=== PATIENT | male | born 1985 | race Two or more races ===

== ENCOUNTER → 2019-03-14 | Outpatient (CLI) | payer BC ==
--- NOTE | 2019-03-14 17:08 | RADIOLOGY REPORT (SQ) ---
EXAM DESCRIPTION: MRI LT LOWER JOINT WITHOUT COMPLETED DATE/TIME: 03/14/2019 8:26 am REASON FOR STUDY: UNSPEC INTERNAL DERANGEMENT OF LEFT KNEE (M23.92) M23.92 UNSPECIFIED INTERNAL RODRIGO ANGEMENT OF LEFT KNEE COMPARISON: None. TECHNIQUE: Leftknee images acquired and stored on PACS. Multiplanar images include fat sensitive se quences as T1, water sensitive sequences as FST2 or STIR, cartilage sensitive sequences as FSPD, and gradient echo sequences. LIMITATIONS: None. FINDINGS: JOINT AND BURSAE: Joint effusion. No popliteal cyst. BONE CORTEX AND MARROW: No alteration of signal to suggest marrow replacement. No worrisome bone lesi ons. No occult fracture. ACL: Intact. No degeneration or ganglion cyst. PCL: Intact. MCL: Intact. No periligamentous edema or fluid. LCL: Intact. No periligamentous edema or fluid. MEDIAL MENISCUS: No tears. No abnormal signal. LATERAL MENISCUS: No tears. No abnormal signal. MEDIAL COMPARTMENT: Cartilage preserved. No bone bruises or reactive marrow edema. No osteophytes. LATERAL COMPARTMENT: Cartilage preserved. No bone bruises or reactive marrow edema. No osteophytes. PATELLA: No chondromalacia. No subchondral cysts. Medial and lateral retinacula intact. EXTENSOR MECHANISM: Intact. Quadriceps and patella tendons normal. SOFT TISSUES: Adjacent muscles and subcutaneous tissues normal. Normal flow void in popliteal artery and vein. OTHER: No other significant finding. IMPRESSION: Large joint effusion. No internal derangement. TECHNICAL DOCUMENTATION: JOB ID: [id number] [employer]- All Rights Reserved Reading location - IP/workstation name: [email or web address]
== END ==
LOC: RAD 07:15
PROVIDERS: ATTEND Orthopaedic Surgery
DX: M23.92 Unspecified internal derangement of left knee (principal)

== ENCOUNTER → 2019-03-16 | Outpatient (CLI) | payer BC ==
[2019-03-16 14:00] LABS: CALCIUM PYROPHOSPHATE CRYSTALS NONE OBSERVED; MONOSODIUM URATE CRYSTALS NONE OBSERVED; OTHER CRYSTALS NONE OBSERVED
[2019-03-16 14:15] LABS: FLUID TYPE SYNOVIAL
[2019-03-16 14:16] LABS: FLUID APPEARANCE CLEAR; FLUID COLOR YELLOW; FLUID SOURCE KNEE; FLUID VISCOSITY SLIGHTLY VISCOUS
[2019-03-19 14:05] LABS: LYME DISEASE IGM AB <0.80 index (0.00-0.79)
[2019-03-19 14:36] LABS: E. CHAFFEENSIS IGG TITER Negative (Neg:<1:64)
[2019-03-19 14:59] LABS: E. CHAFFEENSIS IGM TITER Negative (Neg:<1:20)
[2019-03-19 17:36] LABS: CYTOPLASMIC (C-ANCA) <1:20 titer (Neg:<1:20)
[2019-03-20 07:09] LABS: ATYPICAL PANCA <1:20 titer (Neg:<1:20); CYCLIC CITRUL PEPTIDE IGG/A AB 6 units (0-19)
== END ==
LOC: OD 10:09
PROVIDERS: ATTEND Orthopaedic Surgery
DX: R60.9 Edema, unspecified (principal); M25.50 Pain in unspecified joint; E27.8 Other specified disorders of adrenal gland
CPT/HCPCS: 36415; 82306; 82784; 85652; 86021; 86038; 86140; 86200; 86617; 86618; 86812; 87070; 87075; 87205; 89050; 89060

== ENCOUNTER 2019-08-16 09:27 | Day surgery (SDC) | payer BC ==
[~2019-08-16 09:27] MED LIST: ACETAMINOPHEN 325 MG TABLET PO PRN; CEFAZOLIN 2 GM/D5W RTU 2 GM/50 ML RTUPB IV PRN; LACTATED RINGERS 1000 ML IV PRN; LIDOCAINE 0.5% INJ-PF (5 MG/ML) 50 ML SDV SUBCUT PRN; OXYCODONE HCL SR 10 MG TABLET PO PRN; PANTOPRAZOLE SODIUM 20 MG TABLET.DR PO PRN
[2019-08-16] MEDS ORDERED: DEXAMETHASONE SOD PHOSPHATE INJ 4 MG/1 ML VIAL ONE (09:54)
[2019-08-16] MEDS ORDERED: ONDANSETRON HCL INJ/PF 4 MG/2 ML SDV ONE (09:54)
[2019-08-16] MEDS ORDERED: LIDOCAINE 2% INJ-PF (20 MG/ML) 2 ML AMPUL ONE (09:54)
[2019-08-16] MEDS ORDERED: KETOROLAC TROMETHAMINE 60 MG/2 ML SDV ONE (09:54)
[2019-08-16] MEDS ORDERED: CEFAZOLIN 2 GM/D5W RTU 2 GM/50 ML RTUPB IV ONE (10:04)
[2019-08-16] MEDS ORDERED: OXYCODONE HCL SR 10 MG TABLET PO ONE (10:05)
[2019-08-16] MEDS ORDERED: PANTOPRAZOLE SODIUM 20 MG TABLET.DR PO ONE (10:05)
[2019-08-16] MEDS ORDERED: ACETAMINOPHEN 325 MG TABLET ONE (10:05)
[2019-08-16] MEDS ORDERED: MIDAZOLAM 2 MG/2 ML INJ ONE (12:08)
[2019-08-16] MEDS ORDERED: FENTANYL CITRATE INJ/PF 100 MCG/2 ML AMPUL ONE (12:08)
[2019-08-16] MEDS ORDERED: PROPOFOL INJ 200 MG/20 ML VIAL IV ONE (12:09)
[2019-08-16] MEDS ORDERED: TRIAMCINOLONE ACETONIDE INJ 40 MG/1 ML VIAL ONE (12:17)
[2019-08-16] MEDS ORDERED: EPINEPHRINE INJ/PF 1 MG/1 ML AMPULE ONE (12:17)
[2019-08-16] MEDS ORDERED: BUPIVACAINE HCL 0.5 % INJ/PF 30 ML SDV ONE (12:17)
[2019-08-16] MEDS ORDERED: KETOROLAC TROMETHAMINE INJ/PF 30 MG/1 ML SDV ONE (12:17)
[2019-08-16] MEDS ORDERED: LIDOCAINE 1% INJ-PF (10 MG/ML) 30 ML SDV ONE (12:18)
[2019-08-16] MEDS ORDERED: FENTANYL CITRATE INJ/PF 100 MCG/2 ML AMPUL IV PRN ×3 (12:44)
[2019-08-16] MEDS ORDERED: PROMETHAZINE HCL INJ 25 MG/1 ML VIAL IV PRN ×2 (12:44)
[2019-08-16] MEDS ORDERED: DIPHENHYDRAMINE HCL 50 MG/ML VIAL IV PRN (12:44)
[2019-08-16] MEDS ORDERED: MEPERIDINE HCL/PF INJ 25 MG/1 ML DISP.SYRIN IV PRN (12:44)
[2019-08-16] MEDS ORDERED: KETOROLAC TROMETHAMINE 60 MG/2 ML SDV IM PRN (14:09)
[2019-08-16] MEDS ORDERED: ONDANSETRON HCL INJ/PF 4 MG/2 ML SDV IV PRN (14:09)
[2019-08-16] MEDS ORDERED: OXYCODONE-ACETAMINOPHEN 5-325 MG TABLET PO PRN (14:09)
[2019-08-16] MEDS ORDERED: RINGERS SOLUTION,LACTATED 1,000 ML IV PRN (14:09)
[2019-08-16] MEDS ORDERED: MORPHINE SULFATE 10 MG/ML INJ IV PRN (14:09)
--- NOTE | 2019-08-16 14:09 | Operative Report ---
Operative Report DATE OF SURGERY: 08/16/19 PREOPERATIVE DIAGNOSIS: Left knee internal derangement, plica POSTOPERATIVE DIAGNOSIS: Left knee internal derangement, plica, medial femoral condyle articular cartilage defect OPERATION: Left knee arthroscopy, plica resection, medial femoral condyle chondroplasty, fat pad excision SURGEON: RAFA OVERTON JR ANESTHESIA: GA COMPLICATIONS: None ESTIMATED BLOOD LOSS: 10 cc PROCEDURE: DESCRIPTION OF THE PROCEDURE: The patient was placed supine on the operating room table. After the patient was placed under general anesthesia, and appropriate timeout was performed. The patient was prepped and draped in the usual sterile fashion for arthroscopic surgery. The left lower extremity was then exsanguinated with the use of an Esmarch bandage and the tourniquet was inflated to 280 mmHg. The operation commenced with creation of the lateral portal with an 11 blade. The arthroscope was directed into the suprapatellar pouch with the knee held in extension. A systematic examination of the left knee was begun arthroscopically. The patellofemoral articulation was visualized and smooth articular cartilage without defects, softening, or degenerative changes in the patellofemoral compartment was found. Hypertrophic fat pad with contiguous hypertrophy of a medial plica was visualized. The medial gutter was entered. No loose bodies were identified. The medial compartment was then entered and the medial portal was established under direct visualization with a spinal needle followed by an 11 blade. The arthroscopic probe was used to inspect the contents of the medial compartment. The meniscus was inspected and found to be intact without any signs of instability or degenerative changes or acute tears. There was some softening of the medial tibial plateau without full-thickness cartilage loss, grade 1 changes. The medial femoral condyle however had full-thickness cartilage loss throughout a large arc of motion from approximately the mid coronal plane through the entirety of the posterior femoral condyle. Anteriorly was mostly fissuring with stable cartilaginous edges however the further posterior the larger the patch of full-thickness cartilage loss. More posteriorly there was an area of delaminated cartilage with unstable edges. This was debrided with a bullet tip suction shaver until a stable cartilaginous rim was achieved. The notch was then visualized. The anterior cruciate ligament and PCL were found to be intact. The arthroscope was directed into the lateral compartment. Notch fat pad and ligamentum mucosum tissue were resected with a suction shaver in order to better visualize the lateral compartment. The meniscus was inspected with a probe and found intact without acute tear or degenerative changes. A subsequently the lateral femoral condyle and the lateral tibial plateau were inspected with a probe. This found the lateral compartment cartilage to be intact and stable without degenerative changes. We then commenced to resect the medial femoral plica and continued our resection into the hypertrophic fat pad. Portals were exchanged to complete full visualization of the lateral compartment. The patellofemoral compartment was revisited and it was found to be clear of any impinging synovium or fat pad with any appreciable patellofemoral chondral degeneration. A mixture of Marcaine, lidocaine and toradol was injected into the right knee. The instruments were then removed. The portals were closed with 3-0 nylon and Xeroform and a light compressive dressing was applied. The tourniquet was deflated. The patient was recovered from his anesthetic and was returned to the recovery room in stable condition. There were no complications.
[2019-08-16] MEDS ORDERED: ACETAMINOPHEN 325 MG TABLET PO ONE (14:11)
[2019-08-16] MEDS ORDERED: OXYCODONE-ACETAMINOPHEN 5-325 MG TABLET ONE (14:15)
[2019-08-16 15:52] VITALS: BP 121/76
== END 2019-08-16 15:30 | disposition home or self-care (01) ==
LOC: OROUT 09:27
PROVIDERS: ATTEND Orthopaedic Surgery
DX: M23.92 Unspecified internal derangement of left knee (principal); M67.52 Plica syndrome, left knee; M25.862 Other specified joint disorders, left knee; M25.562 Pain in left knee; Z03.818 Encounter for observation for suspected exposure to other biological agents ruled out
CPT/HCPCS: 29875; 29999; 87635; J2250; J3490 ×3; J0171; J3010; J1885; J2704; J0690; C9803; J1100; J2405; J3301